=== PATIENT | female | born 1980 | race Caucasian/White ===

== ENCOUNTER 2024-12-10 12:43 | Outpatient (CLI) | payer OTHER, SELFPAY ==
--- NOTE | 2024-12-10 12:52 | US_ITS ---
WS: [id number] INDICATION: Soft tissue mass TECHNIQUE: LEFT lateral hip pain patient directed area FINDINGS: Ultrasound LEFT lateral hip patient directed area Dense lobulated echogenic tissue in the area of concern LEFT lateral hip corresponds to the area of palpable concern. This most likely represents a lipoma or lipomatous tissue in this area. No evidence of fluid collection or abscess. No other suspicious findings. Suspected lipoma measures 3.5 x 0.9 cm. If persistent concern or enlarging nodule, then recommend further evaluation with MRI or CT hip US/US soft tissue/extremity [id number] IMPRESSION: See discussion above
== END 2024-12-10 12:44 | disposition home or self-care (01) ==
PROVIDERS: Family Provider Family Medicine; PCP Family Medicine; Visit Provider Student in an Organized Health Care Education/Training Program
DX: M25.552 Pain in left hip (principal); R93.7 Abnormal findings on diagnostic imaging of other parts of musculoskeletal system; M79.9 Soft tissue disorder, unspecified
CPT/HCPCS: 76882